=== PATIENT | male | born 1975 | race Hispanic/Latino ===

== ENCOUNTER 2023-07-07 09:39 | Outpatient (CLI) | payer BC | END 2023-07-07 09:40 | disposition home or self-care (01) | LOC: CSHWCC 09:39 | PROVIDERS: ATTEND Nurse Practitioner Family | DX: Z48.815 Encounter for surgical aftercare following surgery on the digestive system (principal); Z43.2 Encounter for attention to ileostomy; Z48.02 Encounter for removal of sutures | CPT/HCPCS: 99213; G0463 ==

== ENCOUNTER 2023-09-15 08:30 | Outpatient (CLI) | payer BC | END 2023-09-15 08:31 | disposition home or self-care (01) | LOC: CSHWCC 08:30 | PROVIDERS: ATTEND Family Medicine | DX: T81.31XD Disruption of external operation (surgical) wound, not elsewhere classified, subsequent encounter (principal); L02.211 Cutaneous abscess of abdominal wall | CPT/HCPCS: 99213; G0463 ==